=== PATIENT | female | born 1970 | race Caucasian/White ===

== ENCOUNTER 2017-07-30 14:00 | Outpatient (RCR) | payer OTHER, SELFPAY ==
--- NOTE | 2017-06-06 14:06 | HP.PTEVAL ---
Patient's Visit Information JAIMEE POSEY is a 47 year old F referred to Physical Therapy by MUKUND SHARMA with a diagnosis of R knee menisectomy. Date of Evaluation: 06/04/17 Physical Therapist: Fabio Luo - Visit Plan Frequency: 3x /Week Duration: 6 Weeks Plan: Start with glute med/quad strengthening, ROM of HEP into ext for final degrees. Add in functional strengthening once able to complete with minimal symptoms. Avoid deep squating. May use IFC for pain control if needed. - Subjective Subjective: Pt. is here today for her initial evaluation of R medial menisectomy. Pt. 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 Pt. trialed conservative treatment, but ultimately had surgery for a menisectomy. Pt. had surgery on 03/24/17. Pt. had started PT at another clinic after surgery, but moved to [place] and would have to travel 1.5 hours to that clinic and decided to be closer to home. Pt. reports having increased pain with walking, stairs, squating and unable to get comfortable at night. Pt. reports decreased pain with icing. She has been completing a HEP at home. Pt. continues to report increased pain with with walking at home. Pt. is still off work currently. Pt. is hopeful to increase strength and get back to all of her functional activities out issues allowing her to return back to work. - Pain R knee Pain Intensity (Out of 10): 5 Pain Intensity Range: 0, 7 - Objective POSTURE: PT. has normal posture in stance. Pt. has equal wt. shift between bilateral LEs. Pt. has TKE in stance, but does report increased R medial knee pain. Pt. has minimal knee valgus of R knee in stance. Mild edema noted. PALPATION: Pt. has increased sensitivity to palpation near her incisions, but firm pressures is fine throughout R knee. Pt. does have mild soreness throughout R quadrupceps, but minimaly. Pt. has well healing port holes, no signs of infection. Negative homans sign. NEUROLOGICAL: Pt. has normal sensation to light and sharp touch throughout bilateral LEs. Pt. has 2+ achilles and patellar DTR bilaterally. Pt. is able to rise on heels and toes without LOB, mild increase in R medial knee pain. ROM: AROM 0-2-124deg. PROM 0-0-130deg mild increase in symptoms and end ranges of motions. Pt. has tight HS bilaterally. Normal hip ROM without increase in symptoms. MMT: RLE- ankle 5/5 throughout; knee- ext 4+/5, flexion 4/5; hip- abd 4/5, flexion 4/5, ext 4/5. LLE- ankle 5/5 throughout; knee- 5/5 throughout; hip- flexon 4+/5, abd 4/5, ext 4+/5. Core strength- poor+. GAIT: Pt. has slight antalgic pattern during R stance phase. Pt. has full knee ext during stance phase. Pt. has decreased time during R stance phase. Pt. reports minimal symptoms during stance phase. STAIRS: Pt. completes with step to pattern withotu loading RLE, use of BHR to complete. - Goals Goal 1:: Pt. to be I with HEP. Goal Time Frame: 4-6 Weeks Goal 2:: Pt. to have symmetrical ROM of R knee to L knee allowing for increased ability to complete all functional mobility. Goal Time Frame: 4-6 Weeks Goal 3:: Pt. to have increased RLE strength symmetrical to R allowing for increased stability and ability to complete all work related activities. Goal Time Frame: 4-6 Weeks Goal 4:: Pt. to have normalized gait pattnern without increase in symptoms. Goal Time Frame: 4-6 Weeks Goal 5:: Pt. to negotiate steps reciprocally with 1 HR without increase in symptoms. - Rehabilitation Potential Physical Therapy Diagnosis: Pt. presents with signs and symptoms consisitent with R menisectomy. Pt. continues to have slight edema, but minimal. Pt. has slight reduction in terminal knee ext, but has close to full knee flexion. Pt. does presents with RLE and core/hip weakness. Pt. would benefit from PT to increase strenght progressing to functional strengthening for work related activities. Rehabilitation Potential: Excellent - Anticipated Interventions Patient/Client Instruction: Educate patient on: Condition, Plan of Care, Risk Factors, Benefits of Fitness Program For the Purpose of:: To improve health and function, To foster healthy habits, To improve decision making, To facilitate caregiver knowledge, To improve self management, To prevent re-injury, To improve ability to perform tasks related to life management, To improve tolerance to ADL's Therapeutic Exercise to Include: Strength training, Power training, Endurance training, Balance training, Postural training, Flexibilty training, Gait and locomotor training, Passive ROM, Active ROM, Dynamic Lumbar Stabilization For the Purpose of:: To decrease pain, To increase ROM, To improve nutrient delivery to tissue, To increase oxygenation perfusion, To improve muscle performance and motor function, To improve ability to perform ADL's, To increase tolerance to activity/condition/position, To improve performance and independence with ADL's, To improve ability of physical actions for home/community/work/leisure, To improve gait and locomotor functions, To improve health of tissue, To decrease soft tissue restriction, To increase flexibility/ROM, To improve endurance, To improve balance IF ES: Yes Cryotherapy (ice pack, ice massage): Yes For the Purpose of:: To decrease pain, To decrease swelling/inflammation, To increase ROM Thank you for the opportunity to evaluate your patient. For Medicare and Medicare HMO plans, please review the plan of care and approve it. It will need to be FAXED BACK to us at [phone] for Medicare purposes. Please let me know if there are questions or concerns regarding this plan of care. Physician Signature: Date:
--- NOTE | 2017-07-31 09:19 | HP.PTREVAL_ITS ---
MUKUND SHARMA, It has been my pleasure to treat JAIMEE POSEY over the last 17 visits for R knee menisectomy. Please see the progress note below for an update on the physical therapy plan of care! Subjective: Pt. reports being 70% better overall. Pt. reports having good days and bad days. She reports decreased pain overall with stairs and walking, but does have some. She reports being HEP compliant with all exercises and stretching. Objective/Function: Pt. continues to progress with PT. ROM- 0-0-128deg,. MMT- R knee- flexion 5-/5, ext 5-/5; hip- flexio 4+/5, abd 4+/5, ext 4+/5. Core strength- fair-. gait: pt. ambulates with normal pattern, occassional R lateral lean during R stance phase. Stairs: Pt. negotiates with 2 HR with reciprocal pattern, Pt. does use HR to off load RLE with descending. NO visible edema noted. Pt. has been progressing with strengthening as expected. Plan Plan: Pt. is requesting that she has further PT to continue with strengthening and tolerance to all stairs and fucntional mobility. Pt. is currently independent with a current HEP. She is doing well, but could benefit from further strengthening and functional monbility tolerance. She was able to push/ pull sled with 100# on it without increase in leg pain. Goals Goal 1:: Pt. to be I with HEP. Goal Time Frame: 4-6 Weeks Goal Progress: Goal Met Goal 2:: Pt. to have symmetrical ROM of R knee to L knee allowing for increased ability to complete all functional mobility. Goal Time Frame: 4-6 Weeks Goal Progress: Goal Met Goal 3:: Pt. to have increased RLE strength symmetrical to R allowing for increased stability and ability to complete all work related activities. Goal Time Frame: 4-6 Weeks Goal Progress: Progressing Goal 4:: Pt. to have normalized gait pattnern without increase in symptoms. Goal Time Frame: 4-6 Weeks Goal Progress: Progressing Goal 5:: Pt. to negotiate steps reciprocally with 1 HR without increase in symptoms. Goal Progress: Progressing Anticipated Interventions Patient/Client Instruction: Educate patient on: Condition, Plan of Care, Risk Factors, Benefits of Fitness Program For the Purpose of:: To improve health and function, To foster healthy habits, To improve decision making, To facilitate caregiver knowledge, To improve self management, To prevent re-injury, To improve ability to perform tasks related to life management, To improve tolerance to ADL's Therapeutic Exercise to Include: Strength training, Power training, Endurance training, Balance training, Postural training, Flexibilty training, Gait and locomotor training, Passive ROM, Active ROM, Dynamic Lumbar Stabilization For the Purpose of:: To decrease pain, To increase ROM, To improve nutrient delivery to tissue, To increase oxygenation perfusion, To improve muscle performance and motor function, To improve ability to perform ADL's, To increase tolerance to activity/condition/position, To improve performance and independence with ADL's, To improve ability of physical actions for home/ community/work/leisure, To improve gait and locomotor functions, To improve health of tissue, To decrease soft tissue restriction, To increase flexibility/ ROM, To improve endurance, To improve balance IF ES: Yes Cryotherapy (ice pack, ice massage): Yes For the Purpose of:: To decrease pain, To decrease swelling/inflammation, To increase ROM Please do not hesitate to contact me at [phone] by phone or Fax: if you have questions or concerns regarding this new plan of care! Sincerely, Fabio Luo
--- NOTE | 2017-12-31 18:52 | HP.PTDCNRP_ITS ---
HP - Discharge Summary (1) - Patient Information JAIMEE POSEY was seen in my office for initial evaluation on 06/04/17. The following Plan of Care was established for this patient: Initial Frequency: 3x /Week Initial Duration: 6 Weeks - Anticipated Interventions Patient/Client Instruction: Educate patient on: Condition, Plan of Care, Risk Factors, Benefits of Fitness Program For the Purpose of:: To improve health and function, To foster healthy habits, To improve decision making, To facilitate caregiver knowledge, To improve self management, To prevent re-injury, To improve ability to perform tasks related to life management, To improve tolerance to ADL's Therapeutic Exercise to Include: Strength training, Power training, Endurance training, Balance training, Postural training, Flexibilty training, Gait and locomotor training, Passive ROM, Active ROM, Dynamic Lumbar Stabilization For the Purpose of:: To decrease pain, To increase ROM, To improve nutrient delivery to tissue, To increase oxygenation perfusion, To improve muscle performance and motor function, To improve ability to perform ADL's, To increase tolerance to activity/condition/position, To improve performance and independence with ADL's, To improve ability of physical actions for home/ community/work/leisure, To improve gait and locomotor functions, To improve health of tissue, To decrease soft tissue restriction, To increase flexibility/ ROM, To improve endurance, To improve balance IF ES: Yes Cryotherapy (ice pack, ice massage): Yes For the Purpose of:: To decrease pain, To decrease swelling/inflammation, To increase ROM This patient was last seen in our office 07/30/17. Pertinent comments regarding their Physical therapy will appear below: Pt. was seen for PT after her meniscal surgery. Pt. ws progressing very well. Pt. reported being ~70% better overall. Pt. was awaiting further insurance approval at out last visit. She was currently independent with HEP and most functional mobility. Pt. has not been seen in ~5 months and will be DC from PT at this point in time. At this point I will be discontinuing this patient from physical therapy. I would be happy to see this patient again in the future if found appropriate by the physician. Thank you! Fabio Luo
== END 2017-07-30 19:00 | disposition home or self-care (01) ==
LOC: PT 14:00
PROVIDERS: Family Provider Family Medicine; PCP Family Medicine
DX: S83.241D Other tear of medial meniscus, current injury, right knee, subsequent encounter (principal)
CPT/HCPCS: 97014; 97110; 97161; G0283

== ENCOUNTER 2018-01-06 13:17 | Observation (INO) | payer BC, OTHER, SELFPAY ==
[2018-01-06] VITALS (13 sets, daily range): BP systolic 121–153; BP diastolic 60–86; PULSE 62–78; RESP 16–23; TEMP 36.2–37; O2SAT 95–99; BMI 37.5; BMI 37.6
[2018-01-06 13:50] LABS: Absolute Lymphocyte Count 3.53 X10^3/ul (0.83-4.51); Absolute Neutrophil Count 14.5 X10^3/uL (2.0-7.7); Basophil# 0.02 X10^3/uL; Basophil% 0.1 % (0-1); Eosinophil# 0.01 X10^3/uL; Eosinophils% 0.1 % (0-5); Lymphocyte # 3.53 X10^3/ul (4.0); Lymphocyte % 18.2 % (19-41); Mean Corp Hgb Conc 28.6 g/gl (32-36); Mean Platelet Vol. 10.1 fl (6.2-12.0); Monocyte# 1.26 X10^3/uL; Monocyte% 6.5 % (0-10); Neutrophil # 14.53 X10^3/uL (2.7-7.7); Neutrophil % 74.9 % (47-70); Platelet Count 415 K/mm3 (150-450); RBC Distribution Width CV 15.8 % (11.6-14.6); RBC Distribution Width SD 39.8 fl (35.1-43.9); White Blood Count 19.4 K/mm3 (4.4-11.0)
[2018-01-06 13:51] LABS: POSITIVE COUNT NO; POSITIVE DIFFERENTIAL NO; POSITIVE MORPHOLOGY YES
[2018-01-06 13:52] LABS: Differential Indicated SCAN CRITERIA MET
[2018-01-06 13:58] LABS: BUN 16 mg/dL (7-18); Creatinine, Serum 0.94 mg/dL (0.55-1.02); Estimated Creatinine Clearance 69.26 ml/min; Glucose 73 mg/dL (74-106)
[2018-01-06 13:59] LABS: Anion Gap 7 (5-15); BUN/Creat Ratio 17.1 RATIO (10-20); Calcium,Total 8.8 mg/dL (8.5-10.1); Chloride 104 mmol/L (98-107); EST Glomerular Filtration Rate 68 mL/min (>60); Est Glom Filt Rate - Afr Amer 82 mL/min (>60); Potassium 3.8 mmol/L (3.5-5.1); Sodium Level 137 mmol/L (136-145)
[2018-01-06 14:29] LABS: Anisocytosis 1+; Hypochromasia 1+; Microcytosis 1+
--- NOTE | 2018-01-06 14:30 | RAD_ITS ---
STUDY: X-RAY CHEST REASON FOR EXAM: Female, 47 years old. Chest pain TECHNIQUE: Single AP portable view of the chest. COMPARISON: None. FINDINGS: The lungs are clear and expanded. There is no demonstrated pleural abnormality. Normal size heart. Normal mediastinum and suzy. Normal visualized pulmonary arteries. Normal visualized aortic arch and descending thoracic aorta. Normal visualized thoracic spine. Normal visualized ribs, clavicles, and shoulders. There is no demonstrated abnormality of the visualized soft tissue structures of the upper abdomen. RAD/Chest 1 View (Portable) IMPRESSION: Normal x-ray examination of the chest. Electronically Signed: Tong Ojeda MD at 15:01 EDT , Service support ,
--- NOTE | 2018-01-06 14:50 | ED.VISSUMM ---
- ER Visit Summary Date of Service: 01/06/18 Chief Complaint: Chest pain History of Present Illness: The patient is a 47 F with chest pain since Friday, 4 days. It feels like something is sitting on her chest. She also has indigestion, nausea, vomiting, diaphoresis, and the pain radiates to her left jaw and neck. Physical Examination: Blood pressure 153/86. Afebrile and otherwise vitals unremarkable. Patient in no acute distress. Heart regular. Lungs clear. Abdomen soft. Skin appears normal. Calf soft and supple. Pulses strong and equal. Test Results: EKG shows sinus rhythm at a rate of 65. Chest x-ray showed no acute process. White count 19.4. Hemoglobin 10.0. Glucose 73. Troponin normal. Emergency Department Course and Treatment: Patient treated with aspirin and placed on a monitor. She is anemic but this is stable. Her elevated white count is likely from starting a prednisone prescription for sciatica. She has no infectious symptoms. Patient planned on an outpatient stress test that her doctor had ordered. She has continued symptoms and her doctor referred her to the emergency department for further evaluation. I spoke with the hospitalist who will admit for further care. Treatment Plan: Above Disposition: Admission Impression: 1. Chest pain This note was generated with [employer] dictation software. It may contain incorrect words, spelling, and punctuation that were not noted in review of the chart prior to signing ED Disposition - Plan for ED Patient: Chief Complaint: Chest Pain Referrals: Jordon Lucio MD [Primary Care Provider] -
--- NOTE | 2018-01-06 14:54 | ED.DCSUM_ITS ---
- ER Visit Summary Date of Service: 01/06/18 Chief Complaint: Chest pain History of Present Illness: The patient is a 47 F with chest pain since Friday , 4 days. It feels like something is sitting on her chest. She also has indigestion, nausea, vomiting, diaphoresis, and the pain radiates to her left jaw and neck. Physical Examination: Blood pressure 153/86. Afebrile and otherwise vitals unremarkable. Patient in no acute distress. Heart regular. Lungs clear. Abdomen soft. Skin appears normal. Calf soft and supple. Pulses strong and equal. Test Results: EKG shows sinus rhythm at a rate of 65. Chest x-ray showed no acute process. White count 19.4. Hemoglobin 10.0. Glucose 73. Troponin normal. Emergency Department Course and Treatment: Patient treated with aspirin and placed on a monitor. She is anemic but this is stable. Her elevated white count is likely from starting a prednisone prescription for sciatica. She has no infectious symptoms. Patient planned on an outpatient stress test that her doctor had ordered. She has continued symptoms and her doctor referred her to the emergency department for further evaluation. I spoke with the hospitalist who will admit for further care. Treatment Plan: Above Disposition: Admission Impression: 1. Chest pain This note was generated with [employer] dictation software. It may contain incorrect words, spelling, and punctuation that were not noted in review of the chart prior to signing ED Disposition - Plan for ED Patient: Chief Complaint: Chest Pain Referrals: Jordon Lucio MD [Primary Care Provider] -
--- NOTE | 2018-01-06 15:05 | PCM.HP.STD ---
Problem List (1) Chest pain Status: Acute History of Present Illness Date of Admission: 01/06/18 Chief Complaint: chest pain The patient is a 47 year old F is with intermittent chest pain chest pain radiates to her arm as well as to her jaw associated with diaphoresis and shortness of breath. Patient had seen her primary care doctor was planning on doing this as outpatient but we just got claiming today presented to the emergency room. In the emergency room, patient's workup here is been negative. The hospitalist service has been asked to admit the patient for further chest pain evaluation cardiac rule out. Patient has never had chest pain like this before. [] Past Medical History Medical History: Medical History (Last Updated 01/06/18 @ 15:07 by Aguilar Salcido DO) Bipolar disorder F31.9 Sciatica M54.30 HTN (hypertension) I10 Allergies No Known Allergies Allergy (Verified 08/03/13 01:15) Home Medications: Ambulatory Orders Medication Instructions Recorded ALPRAZolam [Xanax] 0.5 mg PO DAILY PRN PRN 08/03/13 Fluoxetine [Prozac] 20 mg PO DAILY 08/03/13 Fluoxetine [Prozac] 80 mg PO QHS 08/03/13 Lamotrigine [Lamictal] 200 mg PO DAILY 08/03/13 Pravastatin Sodium [Pravachol] 10 mg PO DAILY 08/03/13 Verapamil HCl [Verapamil ER] 180 mg PO QHS 08/03/13 Prednisone [Prednisone] 20 mg PO DAILY 01/06/18 traZODone [Desyrel] 100 mg PO DAILY 01/06/18 Smoking Status: Former smoker Tobacco Use: Non-smoker Alcohol: None Drugs: None - *Family History Paternal History Items: Hypertension Review of Systems Constitutional: Denies: Chills, Fever, Weight Change Eyes: Denies: Blurred vision, Double vision HEENT: Denies: Head Aches, Sinus Congestion, Sinus Drainage Cardiovascular: Reports: Chest Pain. Denies: Edema Respiratory: Reports: Shortness of Breath. Denies: Cough, Shortness of breath at rest, Sputum production Gastrointestinal: Denies: Abdominal Pain, Nausea, Vomiting Genitourinary: Denies: Dysuria Musculoskeletal: Reports: Arm Pain Skin: Denies: Rash, Wounds Neurological: Denies: Numbness, Tingling, Focal weakness Psychiatric: Reports: - - bipolar Hematologic/ Lymphatic: Denies: Easy Bruising, Easy Bleeding, Hx of blood clot Comment: All review of systems are negative except as mentioned in the history of present illness and the other review of systems. VTE Information - Inpt Only VTE Present on Admission: No VTE Mechan Device Prophylaxis: None VTE Pharm Prophylaxis ordered?: Yes Patient Problems: Active and Suspected Problems Chest pain (Acute) - Physical Exam General: Alert, Cooperative, No apparent distress HEENT: Atraumatic, Normocephalic Oral: Moist Mucosa, No Gingival or Mucosal Lesions/ Ulcerations Neck: No Nodes, Thyroid Normal Size and Texture Lungs: Clear to auscultation, Normal air movement, No rhonchi, No wheeze Cardiovascular: Regular rate, Regular Rhythm, Normal S1, Normal S2, No murmurs Abdomen: Bowel Sounds Present, Soft, Non Tender, Non-Distended, No Hepato-splenomegaly Extremities: No edema, No Calf Tenderness Skin: No rashes, No breakdown Musculoskeletal: No Tenderness to Palpation of Joints or Extremities, No Muscle Wasting, - - Reproducible anterior chest wall tenderness Psych/Mental Status: Normal Affect, Appropriate Vital Signs Temp Pulse Resp BP Pulse Ox 36.2 C L 66 23 H 139/76 H 95 01/06/18 13:19 01/06/18 14:25 01/06/18 14:25 01/06/18 14:25 01/06/18 14:25 Oxygen Delivery Method Room Air Weight: 105.7 kg Body Mass Index (BMI) 37.5 Laboratory Tests Past 24 Hrs 01/06/18 01/06/18 13:30 13:30 WBC 19.4 H RBC 5.00 Hgb 10.0 L Hct 35.0 L MCV 70.0 L MCH 20.0 L MCHC 28.6 L RDW 15.8 H RDW Differential 39.8 Plt Count 415 MPV 10.1 Immature Gran % (Auto) 0.200 Neut % (Auto) 74.9 H Lymph % (Auto) 18.2 L Ogle % (Auto) 6.5 Eos % (Auto) 0.1 Baso % (Auto) 0.1 Absolute Neuts (auto) 14.5 H Absolute Lymphs (auto) 3.53 Total Counted Not Reportable Hypochromasia 1+ Anisocytosis 1+ Microcytosis 1+ Sodium 137 Potassium 3.8 Chloride 104 Carbon Dioxide 26.0 Anion Gap 7 BUN 16 Creatinine 0.94 Estim Creat Clear Calc 69.26 Est GFR (MDRD) Af Amer 82 Est GFR (MDRD) Non-Af 68 BUN/Creatinine Ratio 17.1 Glucose 73 L Calcium 8.8 Troponin I < 0.015 Assessment/Plan All Active Problems Chest pain (Acute) 1. Chest pain Atypical Heart score of 3 OPAL of 0 Patient states that given her sciatica she would not be able to a treadmill stress test the patient undergo a chemical stress test Cycle troponins Aspirin Check lipid panel 2. Leukocytosis Secondary to steroids Monitor 3. DVT prophylaxis with Lovenox Code Visit OBSV E&M: 41425 Initial observation care L2
--- NOTE | 2018-01-06 15:11 | HP.PCM_ITS ---
Problem List (1) Chest pain Status: Acute History of Present Illness Date of Admission: 01/06/18 Chief Complaint: chest pain The patient is a 47 year old F is with intermittent chest pain chest pain radiates to her arm as well as to her jaw associated with diaphoresis and shortness of breath. Patient had seen her primary care doctor was planning on doing this as outpatient but we just got claiming today presented to the emergency room. In the emergency room, patient's workup here is been negative. The hospitalist service has been asked to admit the patient for further chest pain evaluation cardiac rule out. Patient has never had chest pain like this before. [] Past Medical History Medical History: Medical History (Last Updated 01/06/18 @ 15:07 by Aguilar Salcido DO) Bipolar disorder F31.9 Sciatica M54.30 HTN (hypertension) I10 Allergies No Known Allergies Allergy (Verified 08/03/13 01:15) Home Medications: Ambulatory Orders Medication Instructions Recorded ALPRAZolam [Xanax] 0.5 mg PO DAILY PRN PRN 08/03/13 Fluoxetine [Prozac] 20 mg PO DAILY 08/03/13 Fluoxetine [Prozac] 80 mg PO QHS 08/03/13 Lamotrigine [Lamictal] 200 mg PO DAILY 08/03/13 Pravastatin Sodium [Pravachol] 10 mg PO DAILY 08/03/13 Verapamil HCl [Verapamil ER] 180 mg PO QHS 08/03/13 Prednisone [Prednisone] 20 mg PO DAILY 01/06/18 traZODone [Desyrel] 100 mg PO DAILY 01/06/18 Smoking Status: Former smoker Tobacco Use: Non-smoker Alcohol: None Drugs: None - *Family History Paternal History Items: Hypertension Review of Systems Constitutional: Denies: Chills, Fever, Weight Change Eyes: Denies: Blurred vision, Double vision HEENT: Denies: Head Aches, Sinus Congestion, Sinus Drainage Cardiovascular: Reports: Chest Pain. Denies: Edema Respiratory: Reports: Shortness of Breath. Denies: Cough, Shortness of breath at rest, Sputum production Gastrointestinal: Denies: Abdominal Pain, Nausea, Vomiting Genitourinary: Denies: Dysuria Musculoskeletal: Reports: Arm Pain Skin: Denies: Rash, Wounds Neurological: Denies: Numbness, Tingling, Focal weakness Psychiatric: Reports: - - bipolar Hematologic/ Lymphatic: Denies: Easy Bruising, Easy Bleeding, Hx of blood clot Comment: All review of systems are negative except as mentioned in the history of present illness and the other review of systems. VTE Information - Inpt Only VTE Present on Admission: No VTE Mechan Device Prophylaxis: None VTE Pharm Prophylaxis ordered?: Yes Patient Problems: Active and Suspected Problems Chest pain (Acute) - Physical Exam General: Alert, Cooperative, No apparent distress HEENT: Atraumatic, Normocephalic Oral: Moist Mucosa, No Gingival or Mucosal Lesions/ Ulcerations Neck: No Nodes, Thyroid Normal Size and Texture Lungs: Clear to auscultation, Normal air movement, No rhonchi, No wheeze Cardiovascular: Regular rate, Regular Rhythm, Normal S1, Normal S2, No murmurs Abdomen: Bowel Sounds Present, Soft, Non Tender, Non-Distended, No Hepato- splenomegaly Extremities: No edema, No Calf Tenderness Skin: No rashes, No breakdown Musculoskeletal: No Tenderness to Palpation of Joints or Extremities, No Muscle Wasting, - - Reproducible anterior chest wall tenderness Psych/Mental Status: Normal Affect, Appropriate Vital Signs Temp Pulse Resp BP Pulse Ox 36.2 C L 66 23 H 139/76 H 95 01/06/18 13:19 01/06/18 14:25 01/06/18 14:25 01/06/18 14:25 01/06/18 14:25 Oxygen Delivery Method Room Air Weight: 105.7 kg Body Mass Index (BMI) 37.5 Laboratory Tests Past 24 Hrs 01/06/18 01/06/18 13:30 13:30 WBC 19.4 H RBC 5.00 Hgb 10.0 L Hct 35.0 L MCV 70.0 L MCH 20.0 L MCHC 28.6 L RDW 15.8 H RDW Differential 39.8 Plt Count 415 MPV 10.1 Immature Gran % (Auto) 0.200 Neut % (Auto) 74.9 H Lymph % (Auto) 18.2 L [place] % (Auto) 6.5 Eos % (Auto) 0.1 Baso % (Auto) 0.1 Absolute Neuts (auto) 14.5 H Absolute Lymphs (auto) 3.53 Total Counted Not Reportable Hypochromasia 1+ Anisocytosis 1+ Microcytosis 1+ Sodium 137 Potassium 3.8 Chloride 104 Carbon Dioxide 26.0 Anion Gap 7 BUN 16 Creatinine 0.94 Estim Creat Clear Calc 69.26 Est GFR (MDRD) Af Amer 82 Est GFR (MDRD) Non-Af 68 BUN/Creatinine Ratio 17.1 Glucose 73 L Calcium 8.8 Troponin I < 0.015 Assessment/Plan All Active Problems Chest pain (Acute) 1. Chest pain * Atypical * Heart score of 3 * OPAL of 0 * Patient states that given her sciatica she would not be able to a treadmill stress test the patient undergo a chemical stress test * Cycle troponins * Aspirin * Check lipid panel 2. Leukocytosis * Secondary to steroids * Monitor 3. DVT prophylaxis with Lovenox Code Visit OBSV E&M: 33464 Initial observation care L2
[2018-01-06] MEDS: Aspirin 81 MG TAB.CHEW 324 MG PO (15:13)
--- NOTE | 2018-01-06 15:13 | NURSING ---
PCU OBS SUMEET KEENE
--- NOTE | 2018-01-06 15:59 | EKG12_ITS ---
Test Reason : CP Blood Pressure : / mmHG Vent. Rate : 061 BPM Atrial Rate : 061 BPM P-R Int : 162 ms QRS Dur : 108 ms QT Int : 444 ms P-R-T Axes : 037 025 012 degrees QTc Int : 446 ms Normal sinus rhythm Normal ECG Confirmed by KOKO GREEN, ANA ([id number]), editor publications DAVE SPARKS ([id number]) on 01/09/2018 2:50:24 PM Referred By: JASSI Confirmed By:ANA SUTHERLAND MD
[2018-01-06] MEDS: Acetaminophen 325 MG Tablet 650 MG PO (17:55)
[2018-01-06] MEDS: Ondansetron 4 MG/2 ML Vial IV (20:03)
[2018-01-06] MEDS: Verapamil SR 180 MG CAPSULE PO (22:07)
[2018-01-06] MEDS: Pravastatin 20 MG Tablet 10 MG PO (22:07)
[2018-01-06] MEDS: predniSONE 10 MG Tablet 30 MG PO (22:07)
[2018-01-06] MEDS: FLUoxetine 20 MG Capsule 80 MG PO (22:08)
[2018-01-06] MEDS: ALPRAZolam 0.5 MG Tablet PO (22:09)
[2018-01-07 01:56] VITALS: BP 107/57; PULSE 62; RESP 16; TEMP 37; O2SAT 95
[2018-01-07 03:00] VITALS: PULSE 58
[2018-01-07 05:42] VITALS: BP 118/58; PULSE 63; RESP 16; TEMP 36.8; O2SAT 96
[2018-01-07] MEDS: Aspirin E.C. 81 MG Tablet PO (05:42)
[2018-01-07 05:45] LABS: Partial Thromboplast Time 25.2 Seconds (24.1-36.2)
--- NOTE | 2018-01-07 05:55 | EKG12_ITS ---
Test Reason : AM EKG Blood Pressure : / mmHG Vent. Rate : 061 BPM Atrial Rate : 061 BPM P-R Int : 156 ms QRS Dur : 100 ms QT Int : 420 ms P-R-T Axes : 042 029 030 degrees QTc Int : 422 ms Normal sinus rhythm Normal ECG Confirmed by KOKO GREEN, ANA ([id number]), food expeditor DAVE SPARKS ([id number]) on 01/09/2018 2:05:12 PM Referred By: JASSI Confirmed By:ANA SUTHERLAND MD
[2018-01-07 06:13] LABS: Anion Gap 9 (5-15); BUN 15 mg/dL (7-18); BUN/Creat Ratio 15.5 RATIO (10-20); Calcium,Total 8.4 mg/dL (8.5-10.1); Chloride 106 mmol/L (98-107); Cholesterol 231 mg/dL (200); Creatinine, Serum 0.96 mg/dL (0.55-1.02); EST Glomerular Filtration Rate 66 mL/min (>60); Est Glom Filt Rate - Afr Amer 79 mL/min (>60); Estimated Creatinine Clearance 67.82 ml/min; Glucose 134 mg/dL (74-106); High Density Lipoprotein 34 mg/dL; Potassium 4.5 mmol/L (3.5-5.1); Sodium Level 140 mmol/L (136-145); Triglycerides 284 mg/dL; Very Low Density Lipoprotein 57 mg/dL (5-40)
[2018-01-07 06:28] LABS: International Normalized Ratio 1.1; Prothrombin Time (Protime)PT. 13.9 SECONDS (11.7-14.9)
[2018-01-07 06:41] LABS: Hematocrit 33.8 % (37-47); Hemoglobin 9.8 g/dl (12.0-15.0); Mean Corpuscular Hgb 20.5 pg (27.0-32.0); Mean Corpuscular Volume 70.6 fL (81-99); Mean Platelet Vol. 10.5 fl (6.2-12.0); Platelet Count 355 K/mm3 (150-450); RBC Distribution Width CV 16.2 % (11.6-14.6); RBC Distribution Width SD 41.1 fl (35.1-43.9); Red Blood Count 4.79 M/mm3 (4.2-5.4); White Blood Count 11.5 K/mm3 (4.4-11.0)
[2018-01-07 06:45] LABS: Scan Indicated on CBC? Y/N YES- FLAGS NOTED
[2018-01-07 06:47] LABS: Differential Comment SCANNED
--- NOTE | 2018-01-07 09:02 | STRESSREP ---
Stress Test Report Date: 01/07/2018 Procedure: Pharmacologic stress nuclear imaging study Indications: Pain Consent: Per the patient Procedure: The patient underwent pharmacologic (Regadenoson) evaluation with a peak heart rate of 91 beats per minute (52 predicted maximal heart rate) and a peak blood pressure of 120/70 mmHg. The baseline ECG demonstrated normal sinus rhythm. The peak pharmacologic ECG demonstrated no obvious ECG changes. There were no cardiac dysrhythmias pretest, during pharmacologic infusion, or recovery. There was no complaint of chest discomfort during pharmacologic infusion or recovery. The examination was discontinued secondary to completion of protocol. Impression: 1. Pharmacologic (Regadenoson) evaluation 2. Peak pharmacologic ECG with no obvious ECG changes. 3. No cardiac dysrhythmias pretest, during pharmacologic infusion, or recovery 4. Nuclear images pending Myocardial perfusion imaging study: Technique: The patient was injected with 15 millicuries of technetium 99m Cardiolite and subsequently rest SPECT Cardiolite nuclear imaging was obtained in the horizontal long, vertical long, and short axis views. The patient underwent pharmacologic (Regadenoson) evaluation with a peak heart rate of 91 beats per minute (50 to % percent predicted maximal heart rate) and a peak blood pressure of 120/70 mmHg. The patient was injected with 45 millicuries of technetium 99m Cardiolite and subsequently stress SPECT Cardiolite nuclear imaging was obtained in the horizontal long, vertical long, and short axis views. A gated Cardiolite study at peak stress was obtained. Interpretation: Rest and stress SPECT Cardiolite nuclear imaging status post realignment, normalization, and attenuation correction demonstrate relative uniform tracer uptake and myocardial perfusion appearing within normal limits. There is end systolic thickening and brightening. The gated Cardiolite study demonstrates myocardial thickening and inward wall motion. The reported LVEF is 72 %. Impression: 1. Rest and stress SPECT Cardiolite nuclear imaging demonstrate relative uniform tracer uptake and myocardial perfusion appearing within normal limits. 2. The gated Cardiolite study reports an LVEF of 72%. This note was generated with [employer] software. It may contain incorrect words, spelling, and punctuation that were not noted in checking the note before signing.
--- NOTE | 2018-01-07 09:41 | ECHOCS_ITS ---
Reason For Study: CHEST PAIN Procedure This was a 2D Doppler, Color Flow transthoracic echocardiogram. Contrast injection was performed. The study was technically difficult. Exam performed portable in patient room. Left Ventricle Normal size and thickness. The estimated ejection fraction is 65 %. Normal diastology for age. No regional wall motion abnormalities noted. Right Ventricle Mildly dilated right ventricle. Normal systolic function. Atria The left atrium is mildly enlarged. Normal right atrium. Mitral Valve The mitral valve is structurally normal. No prolapse or stenosis seen. Tricuspid Valve Normal tricuspid valve. Trivial tricuspid valve insufficiency. Right ventricular systolic pressure estimated to be 24 mmHg. Aortic Valve Trisinus/trileaflet aortic valve. Pulmonic Valve The pulmonic valve is not well visualized. Great Vessels Normal aortic root. Normal arch. Pericardium/Pleural No pericardial effusion. Medication Diluted definity 3ml given slow IV push to enhance endocardial definition. MMode/2D Measurements & Calculations LVIDd: 4.4 cm IVSd: 1.1 cm Ao root diam: 3.3 cm LVIDs: 3.1 cm LVPWd: 1.2 cm RVDd: 4.0 cm FS: 31.4 % LAV(MOD-bp): 67.0 ml LVAd ap4: 33.3 cm2 SV(MOD-sp4): 57.4 ml LAV(MOD-bp) Indexed: 31.4 ml/m2 EDV(MOD-sp4): 102.7 ml LAV(MOD-sp2): 57.6 ml EDV(sp4-el): 104.7 ml LAV(MOD-sp4): 63.4 ml LVAs ap4: 18.8 cm2 ESV(MOD-sp4): 45.3 ml ESV(sp4-el): 44.1 ml EF(MOD-sp4): 55.9 % EF(sp4-el): 57.9 % SV(sp4-el): 60.6 ml LA A4 area: 22.3 cm2 RA A4 area: 17.1 cm2 Time Measurements MV dec time: 0.16 sec Doppler Measurements & Calculations MV E max marcel: 94.4 cm/sec Lat Peak E' Marcel: 13.6 cm/sec Med Peak E' Marcel: 8.8 cm/sec MV A max marcel: 60.1 cm/sec E/E' lat: 6.9 E/E' med: 10.7 MV E/A: 1.6 Ao V2 max: 131.0 cm/sec LV V1 max: 109.0 cm/sec PA V2 max: 112.5 cm/sec Ao max P.9 mmHg LV V1 max P.8 mmHg TR max marcel: 201.5 cm/sec TR max P.5 mmHg Interpretation Summary The estimated ejection fraction is 65 %. Normal diastology for age. The left atrium is mildly enlarged. Trivial tricuspid valve insufficiency. Right ventricular systolic pressure estimated to be 24 mmHg. The study was technically difficult. There is no comparison study available. Contrast injection was performed. Ordering Physician: Jayne Galeano Referring Physician: ROGELIO MADDEN Performed By: Corazon [place], TIAN, RVT
[2018-01-07] MEDS: Acetaminophen 325 MG Tablet 650 MG PO (09:47)
[2018-01-07] MEDS: FLUoxetine 20 MG Capsule PO (09:48)
[2018-01-07] MEDS: lamoTRIgine 100 MG Tablet 200 MG PO (09:48)
[2018-01-07] MEDS: Enoxaparin 40 MG/0.4 ML Syringe SC (10:06)
[2018-01-07 10:59] VITALS: PULSE 65
[2018-01-07 11:42] VITALS: BP 119/66; PULSE 69; RESP 18; TEMP 36.6; O2SAT 98
--- NOTE | 2018-01-07 11:44 | DCINST_ITS ---
- Discharge Diagnoses Current Active Problems: Current Active and Chronic Problems (Last Updated 01/06/18 @ 15:07 by Aguilar Salcido DO) Chest pain (Acute) You will use the following diet at home:: Cardiac Your food should be the consistency of: Regular Your liquids should be the consistency of: Regular/Thin Discharge Activity: Return to Normal Activity Weight Bearing Status: Weight bearing as tolerated Call your doctor if you observe: Shortness of breath, Chest pain Allergies/Adverse Reactions: Allergies No Known Allergies Allergy (Verified 08/03/13 01:15) Medications to take at Discharge ALPRAZolam [Xanax] 0.25 mg PO BID PRN PRN 08/03/13 Fluoxetine [Prozac] 100 mg PO QHS 08/03/13 Lamotrigine [Lamictal] 200 mg PO QHS 08/03/13 Verapamil HCl [Verapamil ER] 180 mg PO QHS 08/03/13 Prednisone See Taper PO QHS 01/06/18 traZODone [Desyrel] 100 mg PO QHS 01/06/18 Aspirin 81 mg PO CONT #30 tab.chew 01/07/18 Nitroglycerin [Nitrostat] 0.4 mg SUBLINGUAL Q5M PRN #30 tab 01/07/18 Pravastatin Sodium [Pravachol] 40 mg PO QHS #30 tab 01/07/18 The following prescriptions were given: Aspirin 81 mg PO CONT #30 tab.chew Nitroglycerin [Nitrostat] 0.4 mg SUBLINGUAL Q5M PRN #30 tab PRN Reason: Chest Pain Pravastatin Sodium [Pravachol] 40 mg PO QHS #30 tab Primary Care Physician: Jordon Lucio MD [Primary Care Provider] - Please follow up with your Primary Care Physician in: one week Test Results: Test results from this visit will be discussed in further detail at your follow- up appointment, if applicable. Proposed Discharge Date: 01/07/18
--- NOTE | 2018-01-07 11:45 | DS.PCM_ITS ---
Discharge Date and Diagnosis - Problem List Patient Problems: Active and Suspected Problems (Last Updated 01/06/18 @ 15:07 by Aguilar Salcido DO ) Chest pain (Acute) Date of Admission: 01/06/18 Date of Discharge: 01/07/18 - Primary Discharge Diagnosis Active and Suspected Problems (Last Updated 01/06/18 @ 15:07 by Aguilar Salcido DO ) Chest pain (Acute) Hospital Course and Treatment Imaging Results: 01/07/18 05:55 Nuclear Stress Test - Chemical [NM] AM (NON MEDS) 01/07/18 09:41 Echo Complete [ECHO] Routine Laboratory Results 01/07/18 01/07/18 01/07/18 05:05 05:05 05:05 WBC 11.5 H RBC 4.79 Hgb 9.8 L Hct 33.8 L MCV 70.6 L MCH 20.5 L MCHC 29.0 L RDW 16.2 H RDW Differential 41.1 Plt Count 355 MPV 10.5 Differential Comment SCANNED PT 13.9 INR 1.1 APTT 25.2 Sodium 140 Potassium 4.5 Chloride 106 Carbon Dioxide 25.0 Anion Gap 9 BUN 15 Creatinine 0.96 Estim Creat Clear Calc 67.82 Est GFR (MDRD) Af Amer 79 Est GFR (MDRD) Non-Af 66 BUN/Creatinine Ratio 15.5 Glucose 134 H Calcium 8.4 L Triglycerides 284 H Cholesterol 231 H LDL Cholesterol 140 H VLDL Cholesterol 57 H HDL Cholesterol 34 L Operations: None Procedures: 2-D Echocardiogram, Stress test Summary of Care Provided: The patient is a 47 year old F was admitted on 01/06/2018 with complaint of intermittent chest pain which radiated to her left arm and her jaw with associated diaphoresis and shortness of breath. She does have a history of CAD but has a chronic history of hypertension, sciatica and bipolar disorder. She was admitted for chest pain workup to rule out ACS. Troponins ?2 were negative and EKG was also negative. She had a stress test which was also negative. Echo was done and report was pending at time of patient's discharge. Patient remained stable and was discharged on 01/07/2018 to follow-up with her primary care doctor. Patient seen and examined prior to discharge. She had no complaints and chest pain had resolved. She denied any fever or chills, any cough or chest pain, shortness of breath, any abdominal pain, any diarrhea vomiting. Review of systems was otherwise negative. Labs and vitals were reviewed. o/e: [] Vital Signs Height 5 ft 6 in Weight: 233 lb 0.458 oz Weight in Pounds 233.0 lbs Pulse Ox 98 Temperature 97.8 F Pulse Rate 69 Respiratory Rate 18 Blood Pressure 119/66 Blood Pressure Position Semi-Fowlers General: Alert, Cooperative, No apparent distress HEENT: Atraumatic, Normocephalic Oral: Moist Mucosa, No Gingival or Mucosal Lesions/ Ulcerations Neck: No Nodes, Thyroid Normal Size and Texture Lungs: Clear to auscultation, Normal air movement, No rhonchi, No wheeze Cardiovascular: Regular rate, Regular Rhythm, Normal S1, Normal S2, No murmurs Abdomen: Bowel Sounds Present, Soft, Non Tender, Non-Distended, No Hepato- splenomegaly Extremities: No edema, No Calf Tenderness Skin: No rashes, No breakdown Musculoskeletal: No Tenderness to Palpation of Joints or Extremities, No Muscle Wasting, - - Reproducible anterior chest wall tenderness Psych/Mental Status: Normal Affect, Appropriate Plan as stated above. Patient was discharged home with a prescription for p.o. aspirin 81 mg daily and sublingual nitroglycerin 0.4 mg as needed for chest pain as well as pravastatin 40 mg daily on account of elevated lipid panel.. His follow-up with her primary care doctor in 1 week. Discharge Diet: 2000 mg Sodium Diet Discharge Activity: Return to Normal Activity Weight Bearing Status: Weight bearing as tolerated Call your doctor if you observe: Shortness of breath, Chest pain Home Medications: Medications to take at Discharge ALPRAZolam [Xanax] 0.25 mg PO BID PRN PRN 08/03/13 Fluoxetine [Prozac] 100 mg PO QHS 08/03/13 Lamotrigine [Lamictal] 200 mg PO QHS 08/03/13 Verapamil HCl [Verapamil ER] 180 mg PO QHS 08/03/13 Prednisone See Taper PO QHS 01/06/18 traZODone [Desyrel] 100 mg PO QHS 01/06/18 Aspirin 81 mg PO CONT #30 tab.chew 01/07/18 Nitroglycerin [Nitrostat] 0.4 mg SUBLINGUAL Q5M PRN #30 tab 01/07/18 Pravastatin Sodium [Pravachol] 40 mg PO QHS #30 tab 01/07/18 Following Prescrptions Were Given to Patient: Aspirin 81 mg PO CONT #30 tab.chew Nitroglycerin [Nitrostat] 0.4 mg SUBLINGUAL Q5M PRN #30 tab PRN Reason: Chest Pain Pravastatin Sodium [Pravachol] 40 mg PO QHS #30 tab Primary Care Physician: Jordon Lucio MD [Primary Care Provider] - Please follow up with your Primary Care Physician in: one week Disposition: Home Minutes spent on discharge:: 35 Patient Condition:: Stable Medical Necessity - Tobacco Use Smoking Status: Former smoker Tobacco Use: Non-smoker Meaningful Use Info Meaningful Use Diagnoses (Choose all that apply): None applicable Code Visit Inpatient E&M: 11955 Disch Hosp
[2018-01-07 15:40] VITALS: BP 131/76; PULSE 62; RESP 16; TEMP 36.4; O2SAT 95
[2018-01-07] MEDS: Calcium Carbonate 500 MG Tablet 1000 MG PO (15:57)
== END 2018-01-07 16:14 | disposition home or self-care (01) ==
LOC: ED 14:45 → PCU 15:20
PROVIDERS: Emergency Provider Emergency Medicine; Family Provider Family Medicine; PCP Family Medicine; Visit Provider Student in an Organized Health Care Education/Training Program
DX: R07.89 Other chest pain (principal); D64.9 Anemia, unspecified; R06.02 Shortness of breath; F31.9 Bipolar disorder, unspecified; I10 Essential (primary) hypertension; Z79.899 Other long term (current) drug therapy; Z79.52 Long term (current) use of systemic steroids; Z87.891 Personal history of nicotine dependence; T38.0X5A Adverse effect of glucocorticoids and synthetic analogues, initial encounter; D72.829 Elevated white blood cell count, unspecified; M54.30 Sciatica, unspecified side; I25.10 Atherosclerotic heart disease of native coronary artery without angina pectoris
CPT/HCPCS: 36415; 71045; 78452; 80048; 80061; 84484; 85025; 85027; 85610; 85730; 93005; 93017; 93306; 96372; 96374; 99218; 99283; A9500; Q9957; A4216; C8929; G0378; J2405; J2785

== ENCOUNTER → 2018-01-20 16:55 | Outpatient (CLI) | payer BC, OTHER, SELFPAY ==
[2018-01-20 17:36] LABS: D-Dimer Quantitative (DVT/PE) 0.82 FEU/ug/m (0.27-0.49)
== END ==
PROVIDERS: Family Provider Family Medicine; PCP Family Medicine; Visit Provider Family Medicine
DX: R07.9 Chest pain, unspecified (principal)
CPT/HCPCS: 85379

== ENCOUNTER 2018-03-03 13:23 | Emergency (ER) | payer BC, OTHER, SELFPAY ==
[2018-03-03 13:24] VITALS: BP 145/68; PULSE 79; RESP 16; TEMP 36.1; O2SAT 98; BMI 38.0
--- NOTE | 2018-03-03 14:08 | CT_ITS ---
STUDY: CT ABDOMEN AND PELVIS WITH CONTRAST REASON FOR EXAM: Female, 47 years old. Left lower quadrant pain x2 days RADIATION DOSAGE (If Supplied By Facility): CTDIvol = ( 17.04 ) mGy, DLP = ( 1375.16 ) mGycm TECHNIQUE: Transaxial images were obtained from the dome of the diaphragm to the symphysis pubis without oral contrast. 100ML ml of Isovue 300 contrast was administered. Sagittal and coronal images were reconstructed. Individualized dose optimization techniques were used for this CT. COMPARISON: None. FINDINGS: The visualized lung bases are unremarkable aside from dependent atelectasis. The visualized portions of the heart are within normal limits. There is decreased attenuation of the liver consistent with steatosis. There are surgical clips in the gallbladder fossa consistent with a prior cholecystectomy. Normal spleen. Normal pancreas. Normal bilateral adrenal glands. Normal right kidney. Normal left kidney. Normal visualized stomach. Normal small intestine. Normal colon. There is non-visualization of the appendix. Normal abdominal aorta. Normal inferior vena cava. Normal retroperitoneum. Normal urinary bladder. Normal-appearing uterus. There are physiologic ovarian cysts. No demonstrated free fluid in the cul-de-sac. Normal abdominal wall. Normal osseous structures. CT/Abdomen/Pelvis WITH Contrast IMPRESSION: Fatty liver, no suspicious lesion. Previous cholecystectomy Physiologic ovarian cysts Electronically Signed: Terrell Kapoor MD at 16:33 EDT , Service support ,
[2018-03-03] MEDS: Ketorolac 30 MG/ML Syringe IV (14:19)
[2018-03-03] MEDS: Ondansetron 4 MG/2 ML Vial IV (14:19)
[2018-03-03] MEDS: 0.9% Normal Saline 1,000 ML 1000 ML IV (14:19)
[2018-03-03 14:37] LABS: AST(SGOT) 21 U/L (15-37); Alanine Aminotransfer ALT/SGPT 40 U/L (13-56); Albumin, Serum 3.6 g/dL (3.2-5.0); Alkaline Phosphatase 90 U/L (45-117); Anion Gap 6 (5-15); BUN 11 mg/dL (7-18); BUN/Creat Ratio 13.4 RATIO (10-20); Calcium,Total 8.6 mg/dL (8.5-10.1); Chloride 105 mmol/L (98-107); Creatinine, Serum 0.82 mg/dL (0.55-1.02); EST Glomerular Filtration Rate 79 mL/min (>60); Est Glom Filt Rate - Afr Amer 96 mL/min (>60); Globulin 3.7 g/dL (2.2-4.2); Glucose 99 mg/dL (74-106); Lipase 144 U/L (73-393); Protein, Total 7.3 g/dL (6.4-8.2); Sodium Level 139 mmol/L (136-145)
[2018-03-03 14:51] LABS: Absolute Neutrophil Count 4.3 X10^3/uL (2.0-7.7); Basophil# 0.03 X10^3/uL; Basophil% 0.4 % (0-1); Eosinophil# 0.09 X10^3/uL; Eosinophils% 1.3 % (0-5); Hematocrit 39.7 % (37-47); Hemoglobin 12.7 g/dl (12.0-15.0); Lymphocyte % 28.9 % (19-41); Mean Corpuscular Hgb 26.7 pg (27.0-32.0); Mean Corpuscular Volume 83.6 fL (81-99); Monocyte# 0.47 X10^3/uL; Monocyte% 6.8 % (0-10); Neutrophil # 4.32 X10^3/uL (2.7-7.7); Neutrophil % 62.3 % (47-70); Platelet Count 265 K/mm3 (150-450); RBC Distribution Width CV 22.6 % (11.6-14.6); RBC Distribution Width SD 65.8 fl (35.1-43.9); Red Blood Count 4.75 M/mm3 (4.2-5.4); White Blood Count 6.9 K/mm3 (4.4-11.0)
[2018-03-03 14:52] LABS: Differential Indicated SCAN CRITERIA MET; POSITIVE COUNT NO; POSITIVE DIFFERENTIAL NO; POSITIVE MORPHOLOGY YES
[2018-03-03] MEDS: proMETHazine 25 MG/ML Syringe 12.5 MG IV (15:14)
[2018-03-03 15:22] LABS: Bacteria 0 SEEN /hpf (None Seen); Mucous, Urine 0 SEEN /hpf (<or=2+); Squamous Epithelial Cells - UA 0 SEEN /hpf (5-10); White Blood Cells 0 SEEN /hpf (0-5)
[2018-03-03 15:25] LABS: Color, Urine Amber (Yellow); Glucose, Dipstick Normal (Normal); Ketone-Dipstick 5 mg/dl (Negative); Leukocyte Esterase-Dipstick 100 /ul (Negative); Nitrite-Dipstick Negative (Negative); Occult Blood-Urine 250 /ul (Negative); Protein-Dipstick 30 mg/dl (Negative); Specific Gravity, Urine 1.015 (1.002-1.030); Urine Bilirubin Dipstick Negative (Negative); Urine Clarity Cloudy (Clear); Urine Urobilinogen Normal (Normal); Urine pH 6.5 (5.0 - 8.0)
[2018-03-03 15:28] LABS: Internal QC Validated? YES +Cl - CLEAR BKGD; Pregnancy, Urine Negative Negative
[2018-03-03 15:37] LABS: Red Blood Cells-Urine > 100 SEEN /hpf (0-5)
[2018-03-03 16:00] VITALS: BP 112/68; PULSE 58; RESP 16; O2SAT 97
--- NOTE | 2018-03-03 16:53 | ED.DCSUM_ITS ---
- ER Visit Summary Date of Service: 03/03/18 Chief Complaint: Abdominal pain History of Present Illness: The patient is a 47 F who presents with abdominal pain. This is been present for 2 weeks. She describes as sharp. It is worst in the left lower quadrant. She also complains of intermittent nausea and vomiting for the entire 2 weeks. Her last episode was yesterday. She also reports intermittent alternating diarrhea and constipation. She reports chills and sweats but no documented fever. 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 She sees gastroenterology due to history of gastroesophageal reflux disease and gastritis. Physical Examination: Afebrile vitals are normal Moist mucous membranes Heart regular rate and rhythm Lungs are clear Abdomen soft nondistended with normal bowel sounds she does have left lower quadrant abdominal tenderness no guarding no rebound Alert Test Results: CBC CMP lipase all normal. Urinalysis shows blood otherwise normal. is negative. CT of the abdomen and pelvis shows fatty liver and physiologic ovarian cyst no free fluid. Emergency Department Course and Treatment: My initial concern given her presentation was for sigmoid diverticulitis. CT of the abdomen pelvis shows normal colon. She does incidentally have ovarian cyst but there is no evidence of rupture such as free fluid. She was advised of these findings she was advised to follow-up with both gastroenterology and gynecology. Given her alternating diarrhea and constipation this could also be due to irritable bowel syndrome. She understands to return for new or worsening symptoms. She had been treated here with IV fluids Toradol and Zofran she continued to complain of nausea and was also given Phenergan. We will give a prescription for tramadol. Patient discharged home in good condition. Treatment Plan: [] Disposition: Discharge Impression: Abdominal pain Ovarian cyst This note was generated with [employer] dictation software. It may contain incorrect words, spelling, and punctuation that were not noted in review of the chart prior to signing ED Disposition - Plan for ED Patient: Chief Complaint: Abd Pain Referrals: Jordon Lucio MD [Primary Care Provider] -
--- NOTE | 2018-03-03 16:53 | ED.DEP ---
ED Disposition - Plan for ED Patient: Chief Complaint: Abd Pain Instructions: ED Abdominal Pain Unkn Cause, ED Cyst Ovarian Referrals: Jordon Lucio MD [Primary Care Provider] -
== END 2018-03-03 17:03 | disposition home or self-care (01) ==
PROVIDERS: Emergency Provider Emergency Medicine; Family Provider Family Medicine; PCP Family Medicine
DX: R10.32 Left lower quadrant pain (principal); N83.209 Unspecified ovarian cyst, unspecified side; K76.0 Fatty (change of) liver, not elsewhere classified; R11.2 Nausea with vomiting, unspecified; K59.00 Constipation, unspecified; R19.7 Diarrhea, unspecified; I10 Essential (primary) hypertension; K21.9 Gastro-esophageal reflux disease without esophagitis; Z79.82 Long term (current) use of aspirin; Z79.899 Other long term (current) drug therapy; Z87.19 Personal history of other diseases of the digestive system
CPT/HCPCS: 74177; 80053; 81001; 81025; 83690; 85025; 96361; 96374; 96375; 99283; J7030; Q9967; A4216; J2405

== ENCOUNTER 2018-05-30 17:10 | Emergency (ER) | payer BC, OTHER, SELFPAY ==
[2018-05-30 17:11] VITALS: BP 155/79; PULSE 86; RESP 16; TEMP 36.3; O2SAT 97; BMI 37.8
--- NOTE | 2018-05-30 17:26 | ED.VISSUMM ---
- ER Visit Summary Date of Service: 05/30/18 Chief Complaint: Left thumb pain History of Present Illness: The patient is a 48 F thumb pain for about a week. Nothing seemed to bring it on. Worse with touch and movement. Nothing seems to make it better. She never had this before. No other pain or symptoms. Physical Examination: Afebrile and vitals unremarkable. Left hand inspection is unremarkable. Tender to palpation over the dorsal thumb and the base of the thumb. Positive Arturo's test. Good range of motion. No warmth or erythema. Neurovascular intact distally. Test Results: None indicated Emergency Department Course and Treatment: Pain addressed with [place]. She is allergic to NSAIDs. OARRS showed no active opioids. Thumb spica splint ordered. Rest, ice, pain meds. Referred to hand surgery as she also has a history of carpal tunnel syndrome. Treatment Plan: As above Disposition: Discharge Impression: 1. Left side De Quervain tenosynovitis This note was generated with [employer] dictation software. It may contain incorrect words, spelling, and punctuation that were not noted in review of the chart prior to signing ED Disposition - Plan for ED Patient: Chief Complaint: Upper Extremity Injury Referrals: Jordon Lucio MD [Primary Care Provider] -
--- NOTE | 2018-05-30 17:29 | ED.DCSUM_ITS ---
- ER Visit Summary Date of Service: 05/30/18 Chief Complaint: Left thumb pain History of Present Illness: The patient is a 48 F thumb pain for about a week. Nothing seemed to bring it on. Worse with touch and movement. Nothing seems to make it better. She never had this before. No other pain or symptoms. Physical Examination: Afebrile and vitals unremarkable. Left hand inspection is unremarkable. Tender to palpation over the dorsal thumb and the base of the thumb. Positive Arturo's test. Good range of motion. No warmth or erythema. Neurovascular intact distally. Test Results: None indicated Emergency Department Course and Treatment: Pain addressed with [place]. She is allergic to NSAIDs. OARRS showed no active opioids. Thumb spica splint ordered. Rest, ice, pain meds. Referred to hand surgery as she also has a history of carpal tunnel syndrome. Treatment Plan: As above Disposition: Discharge Impression: 1. Left side De Quervain tenosynovitis This note was generated with [employer] dictation software. It may contain incorrect words, spelling, and punctuation that were not noted in review of the chart prior to signing ED Disposition - Plan for ED Patient: Chief Complaint: Upper Extremity Injury Referrals: Jordon Lucio MD [Primary Care Provider] -
--- NOTE | 2018-05-30 17:32 | DCINST.ED_ITS ---
ED Disposition - Plan for ED Patient: Chief Complaint: Upper Extremity Injury Instructions: What Is De [place]ervain Tenosynovitis? Prescriptions: Hydrocodone Bitart/Apap 5-325 [[place] 5MG-325MG] 1 tab PO Q6H PRN PRN 3 Days #10 tab PRN Reason: Pain Referrals: Robinson Johnson MD [STAFF PHYSICIAN] -
[2018-05-30 17:48] VITALS: RESP 18
[2018-05-30] MEDS: HYDROcodone Bitartrate/Apap 5/325 Tablet PO (17:48)
== END 2018-05-30 17:50 | disposition home or self-care (01) ==
LOC: ED 17:27
PROVIDERS: Emergency Provider Emergency Medicine; Family Provider Family Medicine; PCP Family Medicine
DX: M65.4 Radial styloid tenosynovitis [de Quervain] (principal); F31.9 Bipolar disorder, unspecified; Z79.899 Other long term (current) drug therapy
CPT/HCPCS: 99283